=== PATIENT | male | born 1980 | race Caucasian/White ===

== ENCOUNTER 2018-03-31 04:32 | Emergency (ER) | payer SELFPAY ==
[2018-03-31] MEDS ORDERED: LIDOCAINE 2% 20 ML VIAL. (04:51)
[2018-03-31] MEDS: LIDOCAINE 1% Multi-Dose 20 ML VIAL. INJ (05:25)
[2018-03-31] MEDS: LIDOCAINE 2% 20 ML VIAL. IJ (05:29)
== END 2018-03-31 05:49 | disposition home or self-care (01) ==
LOC: ER 04:32
DX: S01.81XA Laceration without foreign body of other part of head, initial encounter (principal); X58.XXXA Exposure to other specified factors, initial encounter; Y93.89 Activity, other specified; Y99.8 Other external cause status; Y92.89 Other specified places as the place of occurrence of the external cause
CPT/HCPCS: 12013; 99283